=== PATIENT | female | born 1985 | race Caucasian/White ===

== ENCOUNTER 2016-12-05 14:47 | Observation (INO) | payer BC, MEDICAID ==
[~2016-12-05 14:47] MED LIST: MACROBID100 MG/CAP PO; PRENA1 CHEW TA1.4 M1 PO; PRENATAL1 EACH PO; ZOFRAN ODT4 MG/UDTAB PO
[2016-12-05 15:28] LABS: URINE BILIRUBIN NEGATIVE (NEG); URINE BLOOD NEGATIVE (NEG); URINE GLUCOSE (UA) NEGATIVE (NEG); URINE KETONE MODERATE (NEG); URINE LEUKOCYTE ESTERASE NEGATIVE (NEG); URINE NITRITE NEGATIVE (NEG); URINE PROTEIN NEGATIVE (NEG); URINE SPECIFIC GRAVITY 1.005 (1.003-1.030)
[2016-12-05 15:31] LABS: URINE APPEARANCE CLEAR; URINE COLOR YELLOW
[2016-12-05 16:24] LABS: BASO % 0.1 % (0-2); EOS % 0.5 % (0-7); EOSINOPHIL ABSOLUTE COUNT 0.1 tho/cmm (0.0-0.7); HCT-HEMATOCRIT 35.9 % (34.0-49.0); HGB-HEMOGLOBIN 12.4 gm/dl (12.0-15.5); IMMATURE GRANULOCYTES ABSOLUTE 0.08 tho/cmm (0-0.03); IMMATURE GRANULOCYTES PERCENT 0.6 % (0-0.3); LYMPH % 7.7 % (20-45); LYMPH ABSOLUTE COUNT 1.1 tho/cmm (0.8-4.5); MCH (MEAN CORPUSCULAR HGB) 30.1 pg (28.0-32.0); MCHC MEAN CORPUSCULAR HGB CONC 34.5 % (32.0-36.0); MCV (MEAN CELL VOLUME) 87.1 fl (82.0-96.0); MEAN PLATELET VOLUME 10.2 cmc (9.4-12.4); MONO % 6.1 % (0-12); MONOCYTE ABSOLUTE COUNT 0.9 tho/cmm (0.0-1.2); PLATELET COUNT 156 tho/cmm (150-450); RED BLOOD COUNT 4.12 mil/cmm (4.00-5.20); RED CELL DISTRIBUTION WIDTH 13.2 % (12.4-16.4); WHITE BLOOD COUNT 14.1 tho/cmm (4.0-10.0)
[2016-12-05 16:39] LABS: ALB/GLOB RATIO 0.6 (0.8-2.0); ALBUMIN 2.5 g/dl (3.5-5.0); ALKALINE PHOSPHATASE 164 U/L (33-138); ALT/SGPT 23 U/L (12-78); ANION GAP 16 mmol/L (0-20); AST/SGOT 20 U/L (10-40); BILIRUBIN,TOTAL 0.4 mg/dl (0-1.5); BLOOD UREA NITROGEN 6 mg/dl (6-24); CALCIUM 8.4 mg/dl (8.5-10.5); CARBON DIOXIDE-VENOUS 21 mmol/L (22-32); CHLORIDE 109 mmol/l (96-110); CREATININE 0.57 mg/dl (0.50-1.10); GLUCOSE 77 mg/dL (70-110); POTASSIUM 3.6 mmol/L (3.7-5.1); SODIUM 142 mmol/L (135-145); eGFR VALUE FOR BLACK >90 mL/Min
== END 2016-12-05 18:47 ==
LOC: LDR 14:47
PROVIDERS: ADMIT Obstetrics & Gynecology
DX: O47.03 False labor before 37 completed weeks of gestation, third trimester (principal); Z3A.34 34 weeks gestation of pregnancy; Z88.0 Allergy status to penicillin; Z87.891 Personal history of nicotine dependence; Z98.890 Other specified postprocedural states
CPT/HCPCS: J2405

== ENCOUNTER 2016-12-11 09:00 | Observation (INO) | payer BC, MEDICAID | END 2016-12-11 09:58 | disposition T | LOC: LDR 09:00 | PROVIDERS: ADMIT Specialist | DX: Z34.83 Encounter for supervision of other normal pregnancy, third trimester (principal); Z3A.35 35 weeks gestation of pregnancy; Z79.899 Other long term (current) drug therapy; Z88.0 Allergy status to penicillin; Z87.891 Personal history of nicotine dependence; Z98.890 Other specified postprocedural states ==

== ENCOUNTER 2016-12-29 19:33 | Inpatient (IN) | payer BC, MEDICAID ==
[2016-12-29 21:34] LABS: BASO % 0.1 % (0-2); EOS % 0.9 % (0-7); EOSINOPHIL ABSOLUTE COUNT 0.1 tho/cmm (0.0-0.7); HCT-HEMATOCRIT 33.3 % (34.0-49.0); HGB-HEMOGLOBIN 11.5 gm/dl (12.0-15.5); IMMATURE GRANULOCYTES ABSOLUTE 0.07 tho/cmm (0-0.03); IMMATURE GRANULOCYTES PERCENT 0.5 % (0-0.3); LYMPH % 25.9 % (20-45); LYMPH ABSOLUTE COUNT 3.6 tho/cmm (0.8-4.5); MCH (MEAN CORPUSCULAR HGB) 29.9 pg (28.0-32.0); MCHC MEAN CORPUSCULAR HGB CONC 34.5 % (32.0-36.0); MCV (MEAN CELL VOLUME) 86.7 fl (82.0-96.0); MONO % 7.3 % (0-12); NEUTROPHIL ABSOLUTE COUNT 9.1 tho/cmm (1.6-8.0); NEUTROPHIL-AUTOMATED 9.1 tho/cmm (1.6-8.0); NEUTROPHILS % 65.3 % (40-80); PLATELET COUNT 156 tho/cmm (150-450); RED BLOOD COUNT 3.84 mil/cmm (4.00-5.20)
[2016-12-30 12:28] LABS: CORD BLOOD PH ARTERIAL 7.17 Units (7.18-7.38)
[2016-12-31 06:13] LABS: BASO % 0.2 % (0-2); EOS % 0.9 % (0-7); EOSINOPHIL ABSOLUTE COUNT 0.1 tho/cmm (0.0-0.7); HCT-HEMATOCRIT 31.9 % (34.0-49.0); HGB-HEMOGLOBIN 10.8 gm/dl (12.0-15.5); IMMATURE GRANULOCYTES ABSOLUTE 0.09 tho/cmm (0-0.03); IMMATURE GRANULOCYTES PERCENT 0.6 % (0-0.3); LYMPH % 17.6 % (20-45); LYMPH ABSOLUTE COUNT 2.8 tho/cmm (0.8-4.5); MCH (MEAN CORPUSCULAR HGB) 29.9 pg (28.0-32.0); MCHC MEAN CORPUSCULAR HGB CONC 33.9 % (32.0-36.0); MCV (MEAN CELL VOLUME) 88.4 fl (82.0-96.0); MEAN PLATELET VOLUME 10.4 cmc (9.4-12.4); MONO % 7.4 % (0-12); MONOCYTE ABSOLUTE COUNT 1.2 tho/cmm (0.0-1.2); NEUTROPHIL ABSOLUTE COUNT 11.9 tho/cmm (1.6-8.0); NEUTROPHIL-AUTOMATED 11.9 tho/cmm (1.6-8.0); NEUTROPHILS % 73.3 % (40-80); PLATELET COUNT 148 tho/cmm (150-450); RED BLOOD COUNT 3.61 mil/cmm (4.00-5.20); RED CELL DISTRIBUTION WIDTH 13.3 % (12.4-16.4); WHITE BLOOD COUNT 16.2 tho/cmm (4.0-10.0)
[2016-12-31] MEDS ORDERED: IBUPROFEN800 M1 PO (13:08)
[2016-12-31] MEDS ORDERED: TRIPLE ANTIBIO1 EACH TP (18:00)
== END 2016-12-31 19:25 | DRG 775 ==
LOC: LDR 19:33 → OBGF 12-30 14:57
PROVIDERS: ADMIT Specialist
PROC: 3E0P7GC Introduction of Other Therapeutic Substance into Female Reproductive, Via Natural or Artificial Opening (ICD-10-PCS; 2016-12-29)
PROC: 10E0XZZ Delivery of Products of Conception, External Approach (ICD-10-PCS; principal; 2016-12-30)
PROC: 0HQ9XZZ Repair Perineum Skin, External Approach (ICD-10-PCS; 2016-12-30)
DX: O36.1930 Maternal care for other isoimmunization, third trimester, not applicable or unspecified (principal); O70.0 First degree perineal laceration during delivery; Z3A.37 37 weeks gestation of pregnancy; Z37.0 Single live birth
CPT/HCPCS: J2370; J2590